=== PATIENT | female | born 1965 | race Caucasian/White ===

== ENCOUNTER → 2016-12-27 | Outpatient (CLI) | payer OTHER ==
--- NOTE | 2016-12-27 16:05 | RAD ---
EXAM: MAMMO WIL SCREENING BILATERAL. HISTORY: Screening. Breast implants. COMPARISON: None. This is considered a baseline. FINDINGS: 2-D and 3-D tomosynthesis mammograms were obtained of both breasts in the implant displaced CC and MLO projections. Additional routine 2-D mammographic images of both breasts were obtained in CC and MLO projections. Computer-aided detection (CAD) was utilized. Bilateral subpectoral saline implants are seen which appear intact. The breast parenchyma is heterogeneously dense which could reduce sensitivity of mammography (tissue density C). No dominant suspicious mass, suspicious microcalcifications, or architectural distortion is identified. Scattered, benign-appearing calcifications are present in both breasts. IMPRESSION: No mammographic evidence of malignancy. BI-RADS CATEGORY: 2 BENIGN FINDING RECOMMENDED FOLLOW-UP: 12M 12 MONTH FOLLOW-UP PQRS compliance statement: Patient information was entered into a reminder system with a target due date for the next mammogram. Mammography is a sensitive method for finding small breast cancers, but it does not detect them all and is not a substitute for careful clinical examination. A negative mammogram does not negate a clinically suspicious finding and should not result in delay in biopsying a clinically suspicious abnormality. "Our facility is accredited by the [employer] Mammography [employer]."
== END | disposition home or self-care (01) ==
LOC: MAMMO 14:30
PROVIDERS: ATTEND Obstetrics & Gynecology
DX: Z12.31 Encounter for screening mammogram for malignant neoplasm of breast (principal)
CPT/HCPCS: 77063; G0202; 77067